=== PATIENT | female | born 1955 | race Hispanic/Latino ===

== ENCOUNTER 2018-09-24 13:57 | Observation (INO) | payer OTHER ==
[~2018-09-24] VITALS: Ht 160 cm; Wt 90.0 kg
[2018-09-24 14:56] LABS: BASOPHILS % (AUTO) 0.8 % (0.0-5.0); EOSINOPHILS % (AUTO) 2.3 % (0.0-8.0); LYMPHOCYTES % (AUTO) 23.7 % (21.0-51.0); MEAN CORPUSCULAR HEMOGLOBIN 29.8 pg (27.0-33.0); MEAN CORPUSCULAR HGB CONC 33.7 g/dL (32.0-36.0); MEAN CORPUSCULAR VOLUME 88.5 fL (79-99); MONOCYTES % (AUTO) 12.1 % (3.0-13.0); NEUTROPHILS % (AUTO) 61.1 % (40.0-77.0); PLATELET COUNT (AUTO) 237 K/uL (130-400); RED CELL DISTRIBUTION WIDTH 12.9 % (11.0-15.5); WHITE BLOOD COUNT (AUTO) 9.7 K/uL (4.8-10.8)
[2018-09-24 14:57] LABS: POTASSIUM 3.8 mmol/L (3.5-5.1)
[2018-09-24 15:02] LABS: ALBUMIN 3.5 g/dL (3.5-5.0); BILIRUBIN,TOTAL 0.7 mg/dL (0.2-1.0)
[2018-09-24 15:14] LABS: B-TYPE NATRIURETIC PEPTIDE 8 pg/mL (0-100)
[2018-09-24] MEDS ORDERED: ACETAMINOPHEN 325 MG TAB PO PRN ×2 (17:15)
[2018-09-24] MEDS ORDERED: ONDANSETRON HCL 4 MG/2 ML VIAL IV PRN (17:15)
[2018-09-24] MEDS ORDERED: HYDRALAZINE HCL 20 MG/ML VIAL IV PRN (17:15)
[2018-09-24] MEDS ORDERED: LACTULOSE 20 GM/30 ML UDCUP PO PRN (17:15)
[2018-09-24] MEDS ORDERED: MORPHINE SULFATE 2 MG/ML 1ML SYG IV PRN (17:15)
[2018-09-24] MEDS: NITROGLYCERIN 1GM/1 INCH PACKET TD SCH (17:15)
[2018-09-24] MEDS ORDERED: NITROGLYCERIN 1GM/1 INCH PACKET TD ONE (17:48)
--- NOTE | 2018-09-24 20:35 | NUR ---
ADMITTED TO ROOM,. ORIENTATED TO ROOM AND CALL MCCOY, CALL MCCOY WITHIN REACH. PATIENT DENIES ANY COMPLAINTS OF PAIN OR DISCOMFORT AT PRESENT.
[2018-09-24] MEDS ORDERED: ATOR-2 PO (21:06)
[2018-09-24] MEDS ORDERED: PANT40TA25 PO (21:06)
[2018-09-24] MEDS ORDERED: NITR0.4T SL (21:06)
[2018-09-24] MEDS ORDERED: CLOP75TA32 PO (21:06)
[2018-09-24] MEDS ORDERED: [UNRECOGNIZED DRUG - CODE] PO (21:06)
[2018-09-24] MEDS ORDERED: FEXO1TAB8 PO (21:06)
[2018-09-24] MEDS ORDERED: ASPI-555 PO (21:06)
[2018-09-24] MEDS ORDERED: VITAD400 PO (21:06)
[2018-09-24] MEDS: FAMOTIDINE/PF 20 MG/2 ML VIAL IV SCH (21:23)
[2018-09-24] MEDS: METOPROLOL TARTRATE 25 MG TAB PO SCH (21:23)
[2018-09-24 21:49] VITALS: BP 137/63
[2018-09-24 23:06] VITALS: BP 117/55
[2018-09-25] MEDS: ATORVASTATIN CALCIUM 20 MG TABLET PO SCH ×2 (00:45→20:03)
[2018-09-25 00:59] LABS: CREATINE KINASE, TOTAL 54 U/L (21-232); MYOGLOBIN 42 ng/mL (10-92); TROPONIN I < 0.04 ng/mL (0.00-0.06)
[2018-09-25] MEDS: NITROGLYCERIN 1GM/1 INCH PACKET TD SCH ×3 (01:10→16:42)
[2018-09-25 04:00] VITALS: BP 112/52
[2018-09-25 06:56] LABS: CREATINE KINASE, TOTAL 45 U/L (21-232); MYOGLOBIN 56 ng/mL (10-92); TROPONIN I < 0.04 ng/mL (0.00-0.06)
[2018-09-25] MEDS: REGADENOSON 0.4 MG/5 ML PF SYG IVP SCH ×2 (07:15→12:43)
[2018-09-25 07:29] VITALS: BP 121/50
--- NOTE | 2018-09-25 07:35 | NUR ---
ASSESSMENT ENCOUNTERED PT A&OX3, CALM COOPERATIVE AND DOES NOT APPEAR TO BE IN ANY DISTRESS NOR ANY NEURO DEFICITS PRESENT. PT DENIES PAIN, SOB, NAUSEA. PT IS AMBULATORY, GAIT STEADY AND STRONG WITH STAND BY ASSIST. PT IS NPO FOR LEXISCAN. CALL LIGHT WITHIN REACH, FAMILY AT BEDSIDE.
[2018-09-25] MEDS: FAMOTIDINE/PF 20 MG/2 ML VIAL IV SCH ×2 (09:07→20:02)
[2018-09-25] MEDS: ENOXAPARIN SODIUM 40 MG/0.4 ML SYRINGE SQ SCH (09:09)
[2018-09-25] MEDS: ASPIRIN 325 MG TABLET PO SCH (10:33)
[2018-09-25] MEDS: METOPROLOL TARTRATE 25 MG TAB PO SCH ×2 (10:33→20:03)
[2018-09-25 11:42] VITALS: BP 108/54
[2018-09-25 15:59] VITALS: BP 108/61
[2018-09-25 19:17] VITALS: BP 118/52
[2018-09-25 23:05] VITALS: BP 107/46
[2018-09-26] MEDS: NITROGLYCERIN 1GM/1 INCH PACKET TD SCH (00:24)
[2018-09-26 04:05] VITALS: BP 119/58
--- NOTE | 2018-09-26 07:30 | NUR ---
ASSESSMENT ENCOUNTERED PT A&OX3, CALM COOPERATIVE AND DOES NOT APPEAR TO BE IN ANY DISTRESS NOR ANY NEURO DEFICITS PRESENT. PT DENIES PAIN, SOB, NAUSEA BUT DOES C/O INTERMITTENT LEFT STERNAL DISCOMFORT. PT IS AMBULATORY, GAIT STEADY AND STRONG WITH STAND BY ASSIST. CALL LIGHT WITHIN REACH.
[2018-09-26 07:51] VITALS: BP 106/44
[2018-09-26] MEDS: ENOXAPARIN SODIUM 40 MG/0.4 ML SYRINGE SQ SCH (08:48)
[2018-09-26] MEDS: ASPIRIN 325 MG TABLET PO SCH (08:48)
[2018-09-26] MEDS: METOPROLOL TARTRATE 25 MG TAB PO SCH (08:48)
[2018-09-26] MEDS ORDERED: FAMOTIDINE 20MG TAB 20 MG TAB PO SCH (09:00)
[2018-09-26] MEDS ORDERED: PANTOPRAZOLE SODIUM 40 MG TABLET.DR PO SCH (09:00)
[2018-09-26 11:11] VITALS: BP 109/51
[2018-09-26] MEDS ORDERED: ISOS30TA6 PO (14:06)
--- NOTE | 2018-09-26 14:30 | NUR ---
DR AZEVEDO AT BEDSIDE UPDATE GIVEN, ORDERS RECEIVED.
--- NOTE | 2018-09-26 15:11 | NUR ---
DISCHARGE INSTRUCTIONS GIVEN, PIV REMOVED AND INTACT, DISCHARGED HOME TO FAMILY VEHICLE VIA WHEELCHAIR.
== END 2018-09-26 14:48 | disposition home or self-care (01) ==
LOC: EDH 13:57 → EDHIP 17:06 → 2AH 20:45
PROVIDERS: ADMIT Internal Medicine; ATTEND Internal Medicine
DX: I25.110 Atherosclerotic heart disease of native coronary artery with unstable angina pectoris (principal); E03.9 Hypothyroidism, unspecified; E66.9 Obesity, unspecified; E78.5 Hyperlipidemia, unspecified; I10 Essential (primary) hypertension; I27.20 Pulmonary hypertension, unspecified; K21.9 Gastro-esophageal reflux disease without esophagitis; Z90.710 Acquired absence of both cervix and uterus; Z88.0 Allergy status to penicillin
CPT/HCPCS: 36415 ×2; 71046; 78452; 80053; 82550 ×3; 83690; 83874 ×2; 83880; 84484 ×3; 85025; 86677; 93005 ×3; 93017; 93306; 96372 ×2; 96374; 96376; 99284; A9500 ×2; G0378 ×37; J1650 ×2; J2785; J3490 ×3

== ENCOUNTER → 2019-09-27 | Outpatient (CLI) | payer OTHER ==
[~2019-09-27] MED LIST: ASPI-556 PO; ATOR-2 PO; CLOP75TA32 PO; FEXO1TAB8 PO; ISOS30TA6 PO; NITR0.4T SL; PANT40TA54 PO; VITAD400 PO; [UNRECOGNIZED DRUG - CODE] PO
== END | disposition home or self-care (01) ==
LOC: RAH 10:48
PROVIDERS: ATTEND Family Medicine
DX: Z12.31 Encounter for screening mammogram for malignant neoplasm of breast (principal)
CPT/HCPCS: 77067